=== PATIENT | male | born 1960 | race African-American/Black ===

== ENCOUNTER 2017-09-11 11:05 | Outpatient (CLI) | payer OTHER | END 2017-09-11 11:06 | disposition home or self-care (01) | LOC: BICRAD 11:05 | PROVIDERS: ATTEND Internal Medicine | DX: Z02.71 Encounter for disability determination (principal); M17.11 Unilateral primary osteoarthritis, right knee ==

== ENCOUNTER 2021-03-26 08:10 | Outpatient (CLI) | payer BC, MEDICARE | END 2021-03-26 08:11 | disposition home or self-care (01) | PROVIDERS: ATTEND Family Medicine | DX: E66.01 Morbid (severe) obesity due to excess calories (principal); R60.0 Localized edema; M19.90 Unspecified osteoarthritis, unspecified site; I10 Essential (primary) hypertension; Z68.43 Body mass index [BMI] 50.0-59.9, adult ==

== ENCOUNTER 2021-04-23 17:18 | Emergency (ER) | payer BC, MEDICARE ==
[2021-04-24 21:38] LABS: SARS-CoV-2 PCR by NAA Not Detected (NotDetected)
== END 2021-04-23 22:21 | disposition home or self-care (01) ==
LOC: ERS 17:18
DX: J00 Acute nasopharyngitis [common cold] (principal); Z20.822 Contact with and (suspected) exposure to COVID-19; I11.0 Hypertensive heart disease with heart failure; M10.9 Gout, unspecified; I50.9 Heart failure, unspecified; E78.5 Hyperlipidemia, unspecified
CPT/HCPCS: 71045; U0003; U0005

== ENCOUNTER 2022-02-08 13:51 | Inpatient (IN) | payer BC, MEDICARE ==
[2022-02-08 14:41] LABS: #Lymphocytes 1.5 thou/uL (1.20-3.40); #Monocytes 0.8 thou/uL (0.11-0.59); #Neutrophils 11.4 thou/uL (1.40-6.50); %Eosinophils 0.3 % (0.0-10.0); %Lymphocytes 10.9 % (21.0-51.0); %Monocytes 5.9 % (0.0-10.0); %Neutrophils 82.9 % (42.0-75.0); Hemoglobin 14.5 g/dL (14.0-18.0); Mean Corpuscular HGB CONC 30.9 g/dL (32.0-36.0); Mean Corpuscular Hemoglobin 28.6 pg (27.0-31.0); Mean Corpuscular Volume 92.5 fL (78.0-98.0); Mean Platelet Volume 8.3 fL (7.4-10.4); Platelet Count 381 thou/uL (130-400); RBC Distribution Width 13.9 % (11.5-14.5); Red Blood Cell (RBC) Count 5.07 mill/uL (4.70-6.10); White Blood Cell (WBC) Count 13.7 thou/uL (4.8-10.8)
[2022-02-08 15:01] LABS: ALT (SGPT) 12 U/L (8-55); AST (SGOT) 11 U/L (5-34); Albumin 3.4 g/dL (3.4-4.8); Alkaline Phosphatase 87 U/L (40-110); Anion Gap 13 mmol/L (10-20); BUN (Urea Nitrogen) 11 mg/dL (8.4-25.7); Bilirubin, Total 0.3 mg/dL (0.2-1.2); Calc. Creatinine Clearance 0 mL/min (70-130); Calcium 9.4 mg/dL (7.8-10.44); Carbon Dioxide 28 mmol/L (23-31); Chloride 100 mmol/L (98-107); Globulin 4.8 g/dL (2.4-3.5); Glucose 120 mg/dL (80-115); Lipase 6 U/L (8-78); Potassium 4.4 mmol/L (3.5-5.1); Protein, Total 8.2 g/dL (5.8-8.1); Sodium 137 mmol/L (136-145)
[2022-02-08] MEDS ORDERED: Ondansetron PF 4 MG/2 ML Vial ONE (16:17)
[2022-02-08 16:38] LABS: Bilirubin Negative (Negative); Blood, Urine 1+ (Negative); Clarity Clear (Clear); Glucose, Urine (Dipstick) Normal (Negative); Ketone, Urine Negative (Negative); Leukocyte Negative Leu/uL (Negative); Nitrite Negative (Negative); Protein, Urine (Dipstick) 600 mg/dL (Neg-Trace); Specific Gravity, Urine 1.018 (1.002-1.036); Urobilinogen Normal mg/dL (Less than 2); pH, Urine 7.5 (5.0-9.0)
[2022-02-08 16:39] LABS: Bacteria/HPF None Seen HPF (None Seen); RBC/HPF 0-3 HPF (0-3); Squamous Epithelial 0-3 HPF (0-3); WBC/HPF 0-3 HPF (0-3)
[2022-02-08] MEDS ORDERED: Morphine 4 MG/ML VIAL ONE (19:07)
[2022-02-08] MEDS ORDERED: Ondansetron ODT 4 MG TAB PO PRN (21:29)
[2022-02-08] MEDS ORDERED: Acetaminophen 650 MG Suppository PR PRN (21:29)
[2022-02-08] MEDS ORDERED: Ondansetron PF 4 MG/2 ML Vial IVP PRN (21:29)
[2022-02-08] MEDS ORDERED: Sodium Chloride 0.9% 1,000 ML IV SCH (21:30)
[2022-02-08] MEDS: Acetaminophen 325 MG TAB PO PRN (22:15)
[2022-02-08] MEDS: Sodium Chloride 0.9% 1,000 ML IV SCH (22:17)
[2022-02-08 23:50] LABS: SARS-CoV-2 NAA Rapid Test Not Detected (NotDetected)
[2022-02-09] MEDS ORDERED: Furosemide 40 MG TAB PO PRN (00:25)
[2022-02-09 00:39] LABS: Lactic Acid 2.7 mmol/L (0.5-2.2)
[2022-02-09] MEDS ORDERED: traMADol HCl 50 MG TAB PO SCH (01:00)
[2022-02-09] MEDS ORDERED: Loratadine/Pseudoephedrine 10/240 mg Tablet PO PRN (01:04)
[2022-02-09] MEDS: Sodium Chloride 0.9% 1,000 ML IV SCH ×4 (02:20→13:28)
[2022-02-09 05:33] LABS: Hemoglobin A1c 5.5 % (4.0-6.0)
[2022-02-09 05:53] LABS: ALT (SGPT) 8 U/L (8-55); AST (SGOT) 9 U/L (5-34); Albumin 2.8 g/dL (3.4-4.8); Alkaline Phosphatase 70 U/L (40-110); Anion Gap 12 mmol/L (10-20); BUN (Urea Nitrogen) 10 mg/dL (8.4-25.7); Bilirubin, Total 0.2 mg/dL (0.2-1.2); Calc. Creatinine Clearance 155 mL/min (70-130); Calcium 8.7 mg/dL (7.8-10.44); Carbon Dioxide 27 mmol/L (23-31); Cardiac Risk 4.1 (Less than 4.5); Chloride 103 mmol/L (98-107); Cholesterol 203 mg/dl (< 200 Desired); Globulin 4.6 g/dL (2.4-3.5); Glucose 101 mg/dL (80-115); HDL Cholesterol 50 mg/dL (>60 Neg Risk); LDL Cholesterol, Calculated 131 mg/dL; Protein, Total 7.4 g/dL (5.8-8.1); Sodium 138 mmol/L (136-145); Triglycerides 108 mg/dL (Less than 150)
[2022-02-09] MEDS: Levothyroxine Sodium 50 MCG TAB PO SCH (08:25)
[2022-02-09] MEDS: traMADol HCl 50 MG TAB PO SCH ×4 (08:25→22:52)
[2022-02-09] MEDS ORDERED: Lisinopril 2.5 MG TAB PO SCH ×2 (09:00)
[2022-02-09] MEDS: Metoprolol Tartrate 100 MG TAB PO SCH ×2 (09:16→20:48)
[2022-02-09] MEDS: NIFEdipine XL 90 MG TAB PO SCH (09:16)
[2022-02-09] MEDS: Magnesium Oxide 400 MG TAB PO SCH (09:17)
[2022-02-09] MEDS: Thiamine 100 MG TAB PO SCH (09:17)
[2022-02-09] MEDS: Enoxaparin Sodium 40 MG/0.4 ML SYRINGE SC SCH (09:17)
[2022-02-09] MEDS: Lisinopril 5 MG TAB PO SCH (09:23)
[2022-02-09 09:45] LABS: Magnesium 2.4 mg/dL (1.6-2.6)
[2022-02-09 20:43] LABS: Creatinine, Urine 82.54 mg/dL (63-166)
[2022-02-09] MEDS: Atorvastatin Calcium 40 MG TAB PO SCH (20:48)
[2022-02-10] MEDS: traMADol HCl 50 MG TAB PO SCH ×4 (05:45→23:19)
[2022-02-10] MEDS: Levothyroxine Sodium 50 MCG TAB PO SCH (05:45)
[2022-02-10 07:51] LABS: #Basophils 0.1 thou/uL (0.0-0.2); #Eosinphils 0.3 thou/uL (0.0-0.7); #Lymphocytes 1.8 thou/uL (1.20-3.40); #Monocytes 0.9 thou/uL (0.11-0.59); #Neutrophils 5.6 thou/uL (1.40-6.50); %Basophils 0.9 % (0.0-1.0); %Eosinophils 3.3 % (0.0-10.0); %Lymphocytes 21.1 % (21.0-51.0); %Monocytes 10.2 % (0.0-10.0); %Neutrophils 64.5 % (42.0-75.0); Hemoglobin 13.3 g/dL (14.0-18.0); Mean Corpuscular Hemoglobin 29.2 pg (27.0-31.0); Mean Platelet Volume 8.2 fL (7.4-10.4); Platelet Count 326 thou/uL (130-400); RBC Distribution Width 13.8 % (11.5-14.5); Red Blood Cell (RBC) Count 4.56 mill/uL (4.70-6.10); White Blood Cell (WBC) Count 8.6 thou/uL (4.8-10.8)
[2022-02-10 08:17] LABS: ALT (SGPT) 8 U/L (8-55); AST (SGOT) 10 U/L (5-34); Albumin 2.9 g/dL (3.4-4.8); Alkaline Phosphatase 64 U/L (40-110); Anion Gap 11 mmol/L (10-20); BUN (Urea Nitrogen) 10 mg/dL (8.4-25.7); Bilirubin, Total 0.3 mg/dL (0.2-1.2); Calc. Creatinine Clearance 148 mL/min (70-130); Calcium 8.8 mg/dL (7.8-10.44); Carbon Dioxide 26 mmol/L (23-31); Chloride 104 mmol/L (98-107); Globulin 4.7 g/dL (2.4-3.5); Glucose 91 mg/dL (80-115); Potassium 4.2 mmol/L (3.5-5.1); Protein, Total 7.6 g/dL (5.8-8.1); Sodium 137 mmol/L (136-145)
[2022-02-10] MEDS: Magnesium Oxide 400 MG TAB PO SCH (08:56)
[2022-02-10] MEDS: NIFEdipine XL 90 MG TAB PO SCH (08:56)
[2022-02-10] MEDS: Metoprolol Tartrate 100 MG TAB PO SCH ×3 (08:56→20:13)
[2022-02-10] MEDS: Thiamine 100 MG TAB PO SCH (08:56)
[2022-02-10] MEDS: Lisinopril 5 MG TAB PO SCH (08:56)
[2022-02-10] MEDS: Enoxaparin Sodium 40 MG/0.4 ML SYRINGE SC SCH (08:57)
[2022-02-10] MEDS ORDERED: EPINEPHrine 1 MG/ML AMP ONE (13:08)
[2022-02-10] MEDS ORDERED: Bupivacaine 0.25% HCL 30 ML VIAL ONE (13:08)
[2022-02-10] MEDS ORDERED: fentaNYL Citrate/PF 100 MCG/2 ML SYRINGE ONE (13:13)
[2022-02-10] MEDS ORDERED: SUGAMMADEX SODIUM 200 MG/2 ML VIAL ONE ×2 (13:14→15:03)
[2022-02-10] MEDS ORDERED: CEFAZOLIN 2 GM VIAL ONE (13:18)
[2022-02-10] MEDS ORDERED: Sodium Chloride 0.9% 100 ML ONE (13:18)
[2022-02-10] MEDS ORDERED: Ketamine 50 MG/ML (10ML VIAL) ONE (13:23)
[2022-02-10] MEDS ORDERED: Glycopyrrolate 0.2 MG/ML 5 ML SYRINGE ONE (13:32)
[2022-02-10] MEDS ORDERED: Ondansetron PF 4 MG/2 ML Vial ONE (13:32)
[2022-02-10] MEDS ORDERED: Succinylcholine 200 MG/10 ml SYRINGE FS ONE (13:32)
[2022-02-10] MEDS ORDERED: Rocuronium Bromide 10 MG/ML (10ML VIAL) ONE (13:32)
[2022-02-10] MEDS ORDERED: Lidocaine 1% PF 5 ML VIAL ONE (13:32)
[2022-02-10] MEDS ORDERED: ePHEDrine 50 MG/ML VIAL ONE (13:32)
[2022-02-10] MEDS ORDERED: PROPOFOL 200 MG/20 ML VIAL ONE (13:32)
[2022-02-10] MEDS ORDERED: Albumin 5% 250 ML ONE (14:03)
[2022-02-10] MEDS ORDERED: HYDROcodone/Acetaminophen 7.5/325 mg Tablet PO PRN ×2 (14:41)
[2022-02-10] MEDS ORDERED: Morphine 4 MG/ML VIAL SLOW IVP PRN (14:41)
[2022-02-10] MEDS: Atorvastatin Calcium 40 MG TAB PO SCH (20:13)
[2022-02-10] MEDS: Benzonatate 100 MG CAP PO PRN (20:17)
[2022-02-11 04:44] LABS: #Eosinphils 0.2 thou/uL (0.0-0.7); #Lymphocytes 1.4 thou/uL (1.20-3.40); #Monocytes 1.4 thou/uL (0.11-0.59); #Neutrophils 7.6 thou/uL (1.40-6.50); %Basophils 0.1 % (0.0-1.0); %Eosinophils 1.6 % (0.0-10.0); %Lymphocytes 13.2 % (21.0-51.0); %Monocytes 13.5 % (0.0-10.0); %Neutrophils 71.6 % (42.0-75.0); Hemoglobin 12.9 g/dL (14.0-18.0); Mean Corpuscular HGB CONC 30.5 g/dL (32.0-36.0); Mean Corpuscular Hemoglobin 29.3 pg (27.0-31.0); Mean Corpuscular Volume 96.1 fL (78.0-98.0); Mean Platelet Volume 8.6 fL (7.4-10.4); Platelet Count 292 thou/uL (130-400); RBC Distribution Width 14.1 % (11.5-14.5); Red Blood Cell (RBC) Count 4.42 mill/uL (4.70-6.10); White Blood Cell (WBC) Count 10.6 thou/uL (4.8-10.8)
[2022-02-11 05:02] LABS: ALT (SGPT) 7 U/L (8-55); AST (SGOT) 8 U/L (5-34); Alkaline Phosphatase 63 U/L (40-110); Anion Gap 13 mmol/L (10-20); BUN (Urea Nitrogen) 12 mg/dL (8.4-25.7); Bilirubin, Total 0.4 mg/dL (0.2-1.2); Calc. Creatinine Clearance 135 mL/min (70-130); Calcium 9.1 mg/dL (7.8-10.44); Carbon Dioxide 26 mmol/L (23-31); Chloride 102 mmol/L (98-107); Globulin 4.4 g/dL (2.4-3.5); Glucose 90 mg/dL (80-115); Potassium 4.7 mmol/L (3.5-5.1); Protein, Total 7.4 g/dL (5.8-8.1); Sodium 136 mmol/L (136-145)
[2022-02-11] MEDS: traMADol HCl 50 MG TAB PO SCH ×4 (05:12→23:20)
[2022-02-11] MEDS: Levothyroxine Sodium 50 MCG TAB PO SCH (05:13)
[2022-02-11] MEDS ORDERED: Furosemide 40 MG TAB PO SCH (09:15)
[2022-02-11] MEDS ORDERED: Polyethylene Glycol 3350 17 GM Packet PO SCH (09:30)
[2022-02-11] MEDS: Magnesium Oxide 400 MG TAB PO SCH (10:09)
[2022-02-11] MEDS: Lisinopril 5 MG TAB PO SCH (10:09)
[2022-02-11] MEDS: Enoxaparin Sodium 40 MG/0.4 ML SYRINGE SC SCH (10:09)
[2022-02-11] MEDS: Thiamine 100 MG TAB PO SCH (10:10)
[2022-02-11] MEDS: Metoprolol Tartrate 100 MG TAB PO SCH ×2 (10:10→20:45)
[2022-02-11] MEDS: NIFEdipine XL 90 MG TAB PO SCH (10:10)
[2022-02-11] MEDS ORDERED: Metoprolol Tartrate 100 MG TAB PO SCH (13:30)
[2022-02-11] MEDS: Atorvastatin Calcium 40 MG TAB PO SCH (21:08)
[2022-02-11] MEDS: Benzonatate 100 MG CAP PO PRN (21:08)
[2022-02-11] MEDS ORDERED: Diltiazem 125 MG in Sodium Chloride 0.9% 100 ML IVPB SCH (22:15)
[2022-02-12] MEDS: traMADol HCl 50 MG TAB PO SCH ×3 (06:16→18:09)
[2022-02-12] MEDS: Levothyroxine Sodium 50 MCG TAB PO SCH (06:16)
[2022-02-12] MEDS: Lisinopril 5 MG TAB PO SCH (09:49)
[2022-02-12] MEDS: NIFEdipine XL 90 MG TAB PO SCH (09:49)
[2022-02-12] MEDS: Enoxaparin Sodium 40 MG/0.4 ML SYRINGE SC SCH (09:49)
[2022-02-12] MEDS: Magnesium Oxide 400 MG TAB PO SCH (09:49)
[2022-02-12] MEDS: Thiamine 100 MG TAB PO SCH (09:50)
[2022-02-12] MEDS: Metoprolol Tartrate 100 MG TAB PO SCH ×2 (09:50→20:34)
[2022-02-12] MEDS: Polyethylene Glycol 3350 17 GM Packet PO SCH (09:50)
[2022-02-12] MEDS ORDERED: Loratadine 10 MG TAB PO PRN (10:29)
[2022-02-12] MEDS: Atorvastatin Calcium 40 MG TAB PO SCH (20:34)
[2022-02-13] MEDS: traMADol HCl 50 MG TAB PO SCH ×2 (02:03→05:21)
[2022-02-13] MEDS: Levothyroxine Sodium 50 MCG TAB PO SCH ×2 (05:04→06:23)
[2022-02-13] MEDS ORDERED: Metoprolol Tartrate 5 MG/5 ML VIAL IVP SCH ×2 (06:15→07:30)
[2022-02-13 07:30] LABS: Actual Bicarbonate (HCO3a) 25.2 mEq/L (22-28); Analyzer IN Cardio OR; CO2 Tension 59.5 mmHg (35.0-45.0); Calcium, Ionized (arterial) 1.24 mmol/L (1.12-1.30); Carboxyhemoglobin (COHb) 2.2 gm% (0.0-3.0); Hemoglobin (Hb) 13.4 g/dL (14.0-18.0); Potassium - ABG Lab 4.96 mmol/L (3.70-5.30)
[2022-02-13 07:31] LABS: ALV-art Gradient 101.485 mmHg (0-20); O2 Tension (PaO2), arterial 52.3 mmHg (> 80.0); Puncture Site LRA; pH, Arterial 7.25 (7.35-7.45)
[2022-02-13] MEDS ORDERED: Diltiazem HCl 125 MG in Premix Bag 1 BAG IVPB SCH (07:45)
[2022-02-13 08:02] LABS: ALT (SGPT) 26 U/L (8-55); AST (SGOT) 39 U/L (5-34); Albumin 2.9 g/dL (3.4-4.8); Alkaline Phosphatase 148 U/L (40-110); Anion Gap 16 mmol/L (10-20); BUN (Urea Nitrogen) 33 mg/dL (8.4-25.7); Bilirubin, Total 2.5 mg/dL (0.2-1.2); Calc. Creatinine Clearance 72 mL/min (70-130); Calcium 9.5 mg/dL (7.8-10.44); Carbon Dioxide 24 mmol/L (23-31); Chloride 98 mmol/L (98-107); Globulin 4.8 g/dL (2.4-3.5); Glucose 104 mg/dL (80-115); Potassium 5.1 mmol/L (3.5-5.1); Protein, Total 7.7 g/dL (5.8-8.1); Sodium 133 mmol/L (136-145)
[2022-02-13 08:04] LABS: Troponin I 0.024 ng/mL (< 0.028)
[2022-02-13] MEDS ORDERED: Digoxin 0.5 MG/2 ML AMP SLOW IVP SCH (08:15)
[2022-02-13] MEDS: Dextrose 5%-Lactated Ringers 1,000 ML IV SCH (08:44)
[2022-02-13] MEDS: Enoxaparin Sodium 40 MG/0.4 ML SYRINGE SC SCH ×2 (08:48→21:27)
[2022-02-13] MEDS: Famotidine/PF 20 mg/2ml Vial SLOW IVP SCH (08:48)
[2022-02-13] MEDS: NIFEdipine XL 90 MG TAB PO SCH (08:49)
[2022-02-13] MEDS: Magnesium Oxide 400 MG TAB PO SCH (08:49)
[2022-02-13] MEDS: Metoprolol Tartrate 100 MG TAB PO SCH ×3 (08:49→21:26)
[2022-02-13] MEDS: Lisinopril 5 MG TAB PO SCH (08:49)
[2022-02-13] MEDS: Senokot S 8.6-50 MG TAB PO SCH ×2 (08:50→21:27)
[2022-02-13] MEDS: Thiamine 100 MG TAB PO SCH (08:50)
[2022-02-13] MEDS: Polyethylene Glycol 3350 17 GM Packet PO SCH (08:50)
[2022-02-13 08:57] LABS: Band 56 % (5-11); Hemoglobin 13.3 g/dL (14.0-18.0); Hypochromia SLIGHT = 6-15 cells (100X) (0-5/hpf); Lymphocytes 6 % (21-51); MDiff Complete? YES; Mean Corpuscular HGB CONC 30.3 g/dL (32.0-36.0); Mean Corpuscular Hemoglobin 28.9 pg (27.0-31.0); Mean Corpuscular Volume 95.5 fL (78.0-98.0); Mean Platelet Volume 8.2 fL (7.4-10.4); Monocytes 12 % (0-10); Neutrophil 26 % (42-75); Platelet Count 319 thou/uL (130-400); Platelet Morphology Comment Appears Adequate; Red Blood Cell (RBC) Count 4.61 mill/uL (4.70-6.10); Reflex for Review?? YES; White Blood Cell (WBC) Count 10.4 thou/uL (4.8-10.8)
[2022-02-13 10:45] LABS: Actual Bicarbonate (HCO3v) 30 mEq/L (22-28); Base Excess 1.1 mEq/L (-2.0 to +3.0); Chloride (VBG) 99 mmol/L (98-106); Hemoglobin (Hb) 13.3 g/dL (13.1-17.2); Potassium (VBG) 5.41 mmol/L (3.70-5.30); Sodium 132.9 mmol/L (133-146); pH (venous) 7.27 (7.32-7.43)
[2022-02-13] MEDS ORDERED: traMADol HCl 50 MG TAB PO PRN (10:51)
[2022-02-13] MEDS ORDERED: Piperacillin/Tazobactam 3.375 GM in Sodium Chloride 0.9% 100 ML IVPB SCH ×2 (11:45→12:00)
[2022-02-13] MEDS ORDERED: Vancomycin HCl 2.5 GM in Sodium Chloride 0.9% 500 ML IVPB SCH ×2 (12:15→15:00)
[2022-02-13] MEDS ORDERED: Amiodarone 450 MG in Dextrose 5% in Water 250 ML IVPB SCH (12:30)
[2022-02-13 15:31] LABS: ANA Symphony (Qualitative) Negative (Negative); ANA Symphony (Quantitative) 0.2 Ratio (< 0.7 Negative); dsDNA IgG Antibody 0.9 IU/mL (<10 Negative)
[2022-02-13] MEDS: Piperacillin/Tazobactam 3.375 GM in Sodium Chloride 0.9% 100 ML IVPB SCH (15:37)
[2022-02-13 15:51] LABS: Anion Gap 15 mmol/L (10-20); BUN (Urea Nitrogen) 37 mg/dL (8.4-25.7); Calc. Creatinine Clearance 64 mL/min (70-130); Carbon Dioxide 24 mmol/L (23-31); Chloride 101 mmol/L (98-107); Glucose 111 mg/dL (80-115); Potassium 5.2 mmol/L (3.5-5.1); Sodium 135 mmol/L (136-145)
[2022-02-13 20:36] LABS: Troponin I 0.035 ng/mL (< 0.028)
[2022-02-13] MEDS: Atorvastatin Calcium 40 MG TAB PO SCH (21:26)
[2022-02-13 22:54] LABS: Actual Bicarbonate (HCO3a) 18.4 mEq/L (22-28); Base Excess (BEa) -12.8 mEq/L (-2.0 to +3.0); Calcium, Ionized (arterial) 1.37 mmol/L (1.12-1.30); Carboxyhemoglobin (COHb) 1.4 gm% (0.0-3.0); Hemoglobin (Hb) 13.1 g/dL (14.0-18.0); O2 Tension (PaO2), arterial 185.3 mmHg (> 80.0); Potassium - ABG Lab 4.67 mmol/L (3.70-5.30)
[2022-02-13 22:59] LABS: pH, Arterial 7.05 (7.35-7.45)
[2022-02-13 23:00] LABS: CO2 Tension 68.3 mmHg (35.0-45.0)
[2022-02-13] MEDS ORDERED: Norepinephrine 8 MG/0.9% NS 250 ML ONE (23:00)
[2022-02-13] MEDS ORDERED: Propofol 1,000 MG/100 ML VIAL IV ONE (23:16)
[2022-02-13] MEDS ORDERED: Vasopressin 20 UNIT, Admixture Fee 1 EACH in Sodium Chloride 0.9% 50 ML IV SCH (23:30)
[2022-02-14] MEDS: Sodium Bicarbonate 150 MEQ in Dextrose 5% in Water 1,000 ML IV SCH ×2 (00:17→07:31)
[2022-02-14] MEDS: Norepinephrine 8 MG/0.9% NS 250 ML IVPB SCH ×2 (00:25→03:37)
[2022-02-14] MEDS: Piperacillin/Tazobactam 3.375 GM in Sodium Chloride 0.9% 100 ML IVPB SCH ×4 (00:48→23:57)
[2022-02-14] MEDS: Hydrocortisone Sod Succ/PF 100 mg/2 ml Vial IVP SCH ×5 (01:10→23:57)
[2022-02-14 02:34] LABS: ALT (SGPT) 27 U/L (8-55); AST (SGOT) 46 U/L (5-34); Albumin 2.1 g/dL (3.4-4.8); Alkaline Phosphatase 114 U/L (40-110); Anion Gap 25 mmol/L (10-20); BUN (Urea Nitrogen) 38 mg/dL (8.4-25.7); Bilirubin, Total 2.4 mg/dL (0.2-1.2); Calc. Creatinine Clearance 51 mL/min (70-130); Calcium 8.7 mg/dL (7.8-10.44); Carbon Dioxide 14 mmol/L (23-31); Chloride 103 mmol/L (98-107); Globulin 3.7 g/dL (2.4-3.5); Glucose 463 mg/dL (80-115); Magnesium 2.6 mg/dL (1.6-2.6); Phosphorus 3.1 mg/dL (2.3-4.7); Potassium 5.7 mmol/L (3.5-5.1); Protein, Total 5.8 g/dL (5.8-8.1); Sodium 136 mmol/L (136-145)
[2022-02-14 02:37] LABS: Troponin I 0.041 ng/mL (< 0.028)
[2022-02-14 02:40] LABS: Band 18 % (5-11); Hemoglobin 10.1 g/dL (14.0-18.0); Lymphocytes 51 % (21-51); MDiff Complete? YES; Mean Corpuscular HGB CONC 28.5 g/dL (32.0-36.0); Mean Corpuscular Hemoglobin 28.4 pg (27.0-31.0); Mean Corpuscular Volume 99.6 fL (78.0-98.0); Mean Platelet Volume 9.8 fL (7.4-10.4); Monocytes 13 % (0-10); Neutrophil 18 % (42-75); Platelet Count 261 thou/uL (130-400); Platelet Morphology Comment Appears Adequate; RBC Distribution Width 14.4 % (11.5-14.5); Red Blood Cell (RBC) Count 3.56 mill/uL (4.70-6.10); White Blood Cell (WBC) Count 12.8 thou/uL (4.8-10.8)
[2022-02-14 03:29] LABS: CO2 Tension 50.1 mmHg (35.0-45.0); Calcium, Ionized (arterial) 1.24 mmol/L (1.12-1.30); Carboxyhemoglobin (COHb) 0.9 gm% (0.0-3.0); Hemoglobin (Hb) 12.3 g/dL (14.0-18.0); O2 Tension (PaO2), arterial 144.6 mmHg (> 80.0); Potassium - ABG Lab 4.34 mmol/L (3.70-5.30); pH, Arterial 7.28 (7.35-7.45)
[2022-02-14 03:30] LABS: Puncture Site RBA
[2022-02-14 03:31] LABS: ALV-art Gradient 505.775 mmHg (0-20)
[2022-02-14 04:21] LABS: ALT (SGPT) 33 U/L (8-55); AST (SGOT) 62 U/L (5-34); Albumin 2.2 g/dL (3.4-4.8); Alkaline Phosphatase 127 U/L (40-110); Anion Gap 14 mmol/L (10-20); BUN (Urea Nitrogen) 48 mg/dL (8.4-25.7); Bilirubin, Total 3.4 mg/dL (0.2-1.2); Calc. Creatinine Clearance 42 mL/min (70-130); Calcium 9.3 mg/dL (7.8-10.44); Carbon Dioxide 24 mmol/L (23-31); Chloride 100 mmol/L (98-107); Globulin 4.1 g/dL (2.4-3.5); Glucose 100 mg/dL (80-115); Potassium 4.4 mmol/L (3.5-5.1); Protein, Total 6.3 g/dL (5.8-8.1); Sodium 134 mmol/L (136-145)
[2022-02-14 04:22] LABS: Troponin I 0.105 ng/mL (< 0.028)
[2022-02-14 04:35] LABS: Band 40 % (5-11); Hemoglobin 11.9 g/dL (14.0-18.0); Hypochromia SLIGHT = 6-15 cells (100X) (0-5/hpf); Lymphocytes 10 % (21-51); MDiff Complete? YES; Mean Corpuscular HGB CONC 30.9 g/dL (32.0-36.0); Mean Corpuscular Hemoglobin 29.6 pg (27.0-31.0); Mean Platelet Volume 8.7 fL (7.4-10.4); Metamyelocyte 4 % (0-0); Monocytes 9 % (0-10); Neutrophil 37 % (42-75); Platelet Count 299 thou/uL (130-400); Platelet Morphology Comment Appears Adequate; Red Blood Cell (RBC) Count 4.02 mill/uL (4.70-6.10); White Blood Cell (WBC) Count 10.3 thou/uL (4.8-10.8)
[2022-02-14] MEDS ORDERED: DISCONTINUE PREVIOUS NARCOTIC PAIN MEDICATIONS AND BENZODIAZEPINES FS SCH (06:15)
[2022-02-14] MEDS ORDERED: Propofol BOLUS 1,000 MG/100 ML VIAL IV PRN (06:15)
[2022-02-14] MEDS ORDERED: Fentanyl BOLUS 250 ML IVPB PRN (06:15)
[2022-02-14] MEDS ORDERED: Fentanyl CADD 100 ML IV SCH (06:15)
[2022-02-14] MEDS: Dextrose 5%-Lactated Ringers 1,000 ML IV SCH (06:25)
[2022-02-14] MEDS: Levothyroxine Sodium 50 MCG TAB PO SCH (06:25)
[2022-02-14] MEDS ORDERED: fentaNYL Citrate-0.9 % NaCl/PF 100 ML IV SCH (06:30)
[2022-02-14] MEDS: Magnesium Oxide 400 MG TAB PO SCH (07:27)
[2022-02-14] MEDS: Metoprolol Tartrate 100 MG TAB PO SCH ×2 (07:27→20:37)
[2022-02-14] MEDS: Senokot S 8.6-50 MG TAB PO SCH ×2 (07:28→20:38)
[2022-02-14] MEDS: NIFEdipine XL 90 MG TAB PO SCH (07:28)
[2022-02-14] MEDS: Polyethylene Glycol 3350 17 GM Packet PO SCH (07:28)
[2022-02-14] MEDS: Thiamine 100 MG TAB PO SCH (07:29)
[2022-02-14] MEDS: Enoxaparin Sodium 40 MG/0.4 ML SYRINGE SC SCH ×2 (07:30→21:27)
[2022-02-14] MEDS: Amiodarone 450 MG, Admixture Fee 1 EACH in Dextrose 5% in Water 250 ML IVPB SCH (07:31)
[2022-02-14] MEDS: Famotidine/PF 20 mg/2ml Vial SLOW IVP SCH (08:09)
[2022-02-14] MEDS ORDERED: Insulin Regular 300 UNITS/3 ML VIAL SC PRN (08:11)
[2022-02-14 10:29] LABS: Actual Bicarbonate (HCO3v) 25 mEq/L (22-28); Base Excess -1.9 mEq/L (-2.0 to +3.0); Calcium, Ionized (venous) 1.08 mmol/L (1.16-1.32); Chloride (VBG) 99 mmol/L (98-106); Hemoglobin (Hb) 12.2 g/dL (13.1-17.2); Potassium (VBG) 4.75 mmol/L (3.70-5.30); Sodium 130.6 mmol/L (133-146); pH (venous) 7.32 (7.32-7.43)
[2022-02-14] MEDS: Sodium Chloride 0.9% 1,000 ML IV SCH (11:39)
[2022-02-14] MEDS ORDERED: Fentanyl 100 MCG/2 ML VIAL ONE (11:43)
[2022-02-14] MEDS ORDERED: Lidocaine 1% (PF) 30 ML VIAL ONE (11:44)
[2022-02-14] MEDS: Propofol 1,000 MG/100 ML VIAL IV PRN ×2 (11:58→23:57)
[2022-02-14] MEDS ORDERED: VANCOMYCIN 2 GRAM/500 ML BAG 2 GM in Premix Bag 1 BAG IVPB SCH (13:00)
[2022-02-14] MEDS ORDERED: Vancomycin HCl 2.5 GM in Sodium Chloride 0.9% 500 ML IVPB SCH (13:00)
[2022-02-14] MEDS: Lorazepam 2 MG/ML VIAL SLOW IVP PRN ×2 (13:09→14:28)
[2022-02-14 13:16] LABS: Vancomycin, Random 23.1 ug/mL (See Comment)
[2022-02-14] MEDS ORDERED: Amiodarone 150 MG in Dextrose 5% in Water 100 ML IVPB SCH (16:00)
[2022-02-14] MEDS: Atorvastatin Calcium 40 MG TAB PO SCH (20:37)
[2022-02-15] MEDS: Amiodarone 450 MG, Admixture Fee 1 EACH in Dextrose 5% in Water 250 ML IVPB SCH ×2 (03:33→20:20)
[2022-02-15 04:32] LABS: ALT (SGPT) 38 U/L (8-55); AST (SGOT) 74 U/L (5-34); Alkaline Phosphatase 92 U/L (40-110); Anion Gap 20 mmol/L (10-20); BUN (Urea Nitrogen) 63 mg/dL (8.4-25.7); Bilirubin, Total 4.1 mg/dL (0.2-1.2); Calc. Creatinine Clearance 31 mL/min (70-130); Calcium 8.2 mg/dL (7.8-10.44); Carbon Dioxide 22 mmol/L (23-31); Chloride 98 mmol/L (98-107); Globulin 3.7 g/dL (2.4-3.5); Glucose 69 mg/dL (80-115); Potassium 5.7 mmol/L (3.5-5.1); Protein, Total 5.7 g/dL (5.8-8.1); Sodium 134 mmol/L (136-145)
[2022-02-15 04:35] LABS: Band 64 % (5-11); Hemoglobin 10.6 g/dL (14.0-18.0); Hypochromia SLIGHT = 6-15 cells (100X) (0-5/hpf); Lymphocytes 7 % (21-51); MDiff Complete? YES; Mean Corpuscular HGB CONC 30.7 g/dL (32.0-36.0); Mean Corpuscular Hemoglobin 28.9 pg (27.0-31.0); Mean Corpuscular Volume 94.3 fL (78.0-98.0); Mean Platelet Volume 8.8 fL (7.4-10.4); Metamyelocyte 13 % (0-0); Monocytes 3 % (0-10); Myelocyte 1 % (0-0); Neutrophil 12 % (42-75); Nucleated RBC 2 % (0); Platelet Count 262 thou/uL (130-400); Platelet Morphology Comment Appears Adequate; Polychromasia SLIGHT = 2-3 cells (100X) (0-2/hpf); RBC Distribution Width 14.2 % (11.5-14.5); Red Blood Cell (RBC) Count 3.66 mill/uL (4.70-6.10); White Blood Cell (WBC) Count 17.9 thou/uL (4.8-10.8)
[2022-02-15] MEDS ORDERED: Dextrose 50% Abboject 50 ML SYRINGE SLOW IVP PRN (04:42)
[2022-02-15] MEDS ORDERED: Dextrose 5% in Water 1,000 ML IV PRN (04:42)
[2022-02-15] MEDS: Hydrocortisone Sod Succ/PF 100 mg/2 ml Vial IVP SCH ×3 (06:08→17:16)
[2022-02-15] MEDS: Piperacillin/Tazobactam 3.375 GM in Sodium Chloride 0.9% 100 ML IVPB SCH ×2 (07:18→20:48)
[2022-02-15] MEDS: Famotidine/PF 20 mg/2ml Vial SLOW IVP SCH (07:18)
[2022-02-15 08:43] LABS: Actual Bicarbonate (HCO3a) 22.6 mEq/L (22-28); Base Excess (BEa) -3.2 mEq/L (-2.0 to +3.0); CO2 Tension 43.9 mmHg (35.0-45.0); Calcium, Ionized (arterial) 1.01 mmol/L (1.12-1.30); Carboxyhemoglobin (COHb) 1.1 gm% (0.0-3.0); Hemoglobin (Hb) 10.8 g/dL (14.0-18.0); Potassium - ABG Lab 5.24 mmol/L (3.70-5.30); pH, Arterial 7.33 (7.35-7.45)
[2022-02-15 08:46] LABS: O2 Tension (PaO2), arterial 52.3 mmHg (> 80.0)
[2022-02-15 08:47] LABS: ALV-art Gradient 178.025 mmHg (0-20); Puncture Site RRA
[2022-02-15] MEDS: Levothyroxine Sodium 50 MCG TAB PO SCH (09:07)
[2022-02-15] MEDS: Magnesium Oxide 400 MG TAB PO SCH (09:07)
[2022-02-15] MEDS: Metoprolol Tartrate 100 MG TAB PO SCH ×2 (09:07→20:48)
[2022-02-15] MEDS: NIFEdipine XL 90 MG TAB PO SCH (09:07)
[2022-02-15] MEDS: Thiamine 100 MG TAB PO SCH (09:08)
[2022-02-15] MEDS: Polyethylene Glycol 3350 17 GM Packet PO SCH ×2 (09:08→10:57)
[2022-02-15] MEDS: Senokot S 8.6-50 MG TAB PO SCH ×3 (09:08→20:48)
[2022-02-15] MEDS: Enoxaparin Sodium 40 MG/0.4 ML SYRINGE SC SCH ×2 (09:09→20:48)
[2022-02-15] MEDS: Lorazepam 2 MG/ML VIAL SLOW IVP PRN (10:10)
[2022-02-15] MEDS: Propofol 1,000 MG/100 ML VIAL IV PRN ×2 (10:10→17:52)
[2022-02-15] MEDS ORDERED: Heparin 10,000 UNITS/ 10 ML VIAL ONE (11:56)
[2022-02-15 13:40] LABS: Vancomycin, Random 19.3 ug/mL (See Comment)
[2022-02-15 17:18] LABS: HBSAB Concentration Less than 8.00 mIU/mL; HBSAg Index 0.26 S/CO (0-0.99); Hep B Core Total Ab Non-Reactive (NonReactive); Hep B Core Total Index 0.07 S/CO (0-0.79); Hep B Surf AB Non-Reactive (NonReactive); Hep B Surf Ag Non-Reactive S/CO (NonReactive); Hep C IgG Ab Non-Reactive (NonReactive); Hep C Index 0.05 S/CO (0-0.79)
[2022-02-15] MEDS: Atorvastatin Calcium 40 MG TAB PO SCH (20:48)
[2022-02-16] MEDS: Hydrocortisone Sod Succ/PF 100 mg/2 ml Vial IVP SCH ×3 (00:49→11:21)
[2022-02-16] MEDS: Propofol 1,000 MG/100 ML VIAL IV PRN ×4 (03:06→22:30)
[2022-02-16] MEDS: Sodium Chloride 0.9% 1,000 ML IV SCH ×2 (03:07→13:26)
[2022-02-16] MEDS: Acetaminophen 325 MG TAB PO PRN (03:51)
[2022-02-16 05:11] LABS: ALT (SGPT) 58 U/L (8-55); AST (SGOT) 162 U/L (5-34); Alkaline Phosphatase 97 U/L (40-110); Anion Gap 17 mmol/L (10-20); BUN (Urea Nitrogen) 61 mg/dL (8.4-25.7); Band 32 % (5-11); Bilirubin, Total 3.7 mg/dL (0.2-1.2); Calc. Creatinine Clearance 32 mL/min (70-130); Calcium 7.4 mg/dL (7.8-10.44); Carbon Dioxide 23 mmol/L (23-31); Chloride 99 mmol/L (98-107); Estimated GFR 9; Globulin 3.8 g/dL (2.4-3.5); Glucose 67 mg/dL (80-115); Hemoglobin 10.3 g/dL (14.0-18.0); Hypochromia SLIGHT = 6-15 cells (100X) (0-5/hpf); Lymphocytes 6 % (21-51); MDiff Complete? YES; Mean Corpuscular HGB CONC 30.9 g/dL (32.0-36.0); Mean Corpuscular Hemoglobin 28.7 pg (27.0-31.0); Mean Corpuscular Volume 92.7 fL (78.0-98.0); Mean Platelet Volume 9.1 fL (7.4-10.4); Monocytes 14 % (0-10); Neutrophil 48 % (42-75); Nucleated RBC 2 % (0); Platelet Count 216 thou/uL (130-400); Platelet Morphology Comment Appears Adequate; Potassium 5.1 mmol/L (3.5-5.1); Protein, Total 5.8 g/dL (5.8-8.1); RBC Distribution Width 14.3 % (11.5-14.5); Sodium 134 mmol/L (136-145); White Blood Cell (WBC) Count 14.1 thou/uL (4.8-10.8)
[2022-02-16] MEDS: Levothyroxine Sodium 50 MCG TAB PO SCH ×2 (05:41→07:26)
[2022-02-16] MEDS: Polyethylene Glycol 3350 17 GM Packet PO SCH (07:24)
[2022-02-16] MEDS: Enoxaparin Sodium 40 MG/0.4 ML SYRINGE SC SCH (07:26)
[2022-02-16] MEDS: Piperacillin/Tazobactam 3.375 GM in Sodium Chloride 0.9% 100 ML IVPB SCH ×2 (07:26→20:28)
[2022-02-16] MEDS: Senokot S 8.6-50 MG TAB PO SCH ×2 (07:26→20:29)
[2022-02-16] MEDS: Famotidine/PF 20 mg/2ml Vial SLOW IVP SCH (07:26)
[2022-02-16] MEDS: NIFEdipine XL 90 MG TAB PO SCH (07:28)
[2022-02-16] MEDS: Magnesium Oxide 400 MG TAB PO SCH (07:28)
[2022-02-16] MEDS: Metoprolol Tartrate 100 MG TAB PO SCH ×2 (07:28→20:29)
[2022-02-16] MEDS: Thiamine 100 MG TAB PO SCH (07:28)
[2022-02-16] MEDS: Lorazepam 2 MG/ML VIAL SLOW IVP PRN ×3 (07:42→13:25)
[2022-02-16 08:12] LABS: Actual Bicarbonate (HCO3a) 23.5 mEq/L (22-28); Base Excess (BEa) -2.5 mEq/L (-2.0 to +3.0); CO2 Tension 45.8 mmHg (35.0-45.0); Calcium, Ionized (arterial) 0.98 mmol/L (1.12-1.30); Carboxyhemoglobin (COHb) 1.1 gm% (0.0-3.0); Hemoglobin (Hb) 10.9 g/dL (14.0-18.0); pH, Arterial 7.33 (7.35-7.45)
[2022-02-16 08:15] LABS: O2 Tension (PaO2), arterial 51.5 mmHg (> 80.0)
[2022-02-16 08:16] LABS: Puncture Site RRA
[2022-02-16] MEDS ORDERED: Heparin 10,000 UNITS/ 10 ML VIAL ONE (10:52)
[2022-02-16] MEDS ORDERED: hydrALAZINE 20 MG/ML VIAL SLOW IVP PRN (11:27)
[2022-02-16] MEDS: Amiodarone 450 MG, Admixture Fee 1 EACH in Dextrose 5% in Water 250 ML IVPB SCH (17:26)
[2022-02-16] MEDS: Atorvastatin Calcium 40 MG TAB PO SCH (20:29)
[2022-02-16] MEDS: Heparin 5,000 UNITS/ML VIAL SC SCH (20:29)
[2022-02-17] MEDS: Hydrocortisone Sod Succ/PF 100 mg/2 ml Vial IVP SCH ×5 (00:51→19:19)
[2022-02-17] MEDS: Sodium Chloride 0.9% 1,000 ML IV SCH (02:39)
[2022-02-17] MEDS: Propofol 1,000 MG/100 ML VIAL IV PRN ×4 (04:05→20:45)
[2022-02-17 05:02] LABS: ALT (SGPT) 59 U/L (8-55); AST (SGOT) 195 U/L (5-34); Albumin 1.9 g/dL (3.4-4.8); Alkaline Phosphatase 104 U/L (40-110); Anion Gap 19 mmol/L (10-20); BUN (Urea Nitrogen) 58 mg/dL (8.4-25.7); Bilirubin, Total 3.6 mg/dL (0.2-1.2); Calc. Creatinine Clearance 34 mL/min (70-130); Calcium 7.2 mg/dL (7.8-10.44); Carbon Dioxide 22 mmol/L (23-31); Chloride 97 mmol/L (98-107); Estimated GFR 10; Globulin 3.8 g/dL (2.4-3.5); Glucose 87 mg/dL (80-115); Potassium 4.5 mmol/L (3.5-5.1); Protein, Total 5.7 g/dL (5.8-8.1); Sodium 133 mmol/L (136-145)
[2022-02-17] MEDS: Levothyroxine Sodium 50 MCG TAB PO SCH (05:25)
[2022-02-17] MEDS: Heparin 5,000 UNITS/ML VIAL SC SCH ×3 (05:28→21:24)
[2022-02-17 05:30] LABS: Band 41 % (5-11); Eosinophils 2 % (0-10); Lymphocytes 3 % (21-51); MDiff Complete? YES; Mean Corpuscular HGB CONC 31.1 g/dL (32.0-36.0); Mean Corpuscular Volume 93.2 fL (78.0-98.0); Monocytes 7 % (0-10); Neutrophil 47 % (42-75); Platelet Count 186 thou/uL (130-400); RBC Distribution Width 14.4 % (11.5-14.5); Red Blood Cell (RBC) Count 3.46 mill/uL (4.70-6.10)
[2022-02-17 08:06] LABS: Actual Bicarbonate (HCO3a) 22.6 mEq/L (22-28); Base Excess (BEa) -3.4 mEq/L (-2.0 to +3.0); CO2 Tension 44.7 mmHg (35.0-45.0); Calcium, Ionized (arterial) 0.96 mmol/L (1.12-1.30); Carboxyhemoglobin (COHb) 0.9 gm% (0.0-3.0); Hemoglobin (Hb) 10.8 g/dL (14.0-18.0); O2 Tension (PaO2), arterial 75.5 mmHg (> 80.0); Potassium - ABG Lab 4.24 mmol/L (3.70-5.30); pH, Arterial 7.32 (7.35-7.45)
[2022-02-17 08:07] LABS: Puncture Site RRA
[2022-02-17 08:08] LABS: ALV-art Gradient 296.425 mmHg (0-20)
[2022-02-17] MEDS ORDERED: Heparin 10,000 UNITS/ 10 ML VIAL ONE (08:57)
[2022-02-17] MEDS: Polyethylene Glycol 3350 17 GM Packet PO SCH (09:53)
[2022-02-17] MEDS: Thiamine 100 MG TAB PO SCH (09:53)
[2022-02-17] MEDS: Magnesium Oxide 400 MG TAB PO SCH (09:53)
[2022-02-17] MEDS: Senokot S 8.6-50 MG TAB PO SCH ×2 (09:53→20:46)
[2022-02-17] MEDS: Amiodarone 200 MG TAB PER TUBE SCH ×3 (09:54→20:46)
[2022-02-17] MEDS ORDERED: Loratadine 10 MG TAB PO PRN (10:00)
[2022-02-17] MEDS: Piperacillin/Tazobactam 3.375 GM in Sodium Chloride 0.9% 100 ML IVPB SCH ×2 (15:16→20:45)
[2022-02-17] MEDS: NIFEdipine XL 90 MG TAB PO SCH (15:18)
[2022-02-17] MEDS: Metoprolol Tartrate 100 MG TAB PO SCH ×2 (15:21→21:39)
[2022-02-17] MEDS: Famotidine/PF 20 mg/2ml Vial SLOW IVP SCH (15:21)
[2022-02-17] MEDS: Atorvastatin Calcium 40 MG TAB PO SCH (20:46)
[2022-02-17] MEDS: Lorazepam 2 MG/ML VIAL SLOW IVP PRN (21:10)
[2022-02-18] MEDS: Sodium Chloride 0.9% 1,000 ML IV SCH ×2 (00:01→17:38)
[2022-02-18] MEDS: Propofol 1,000 MG/100 ML VIAL IV PRN ×8 (00:01→23:50)
[2022-02-18] MEDS: Hydrocortisone Sod Succ/PF 100 mg/2 ml Vial IVP SCH ×5 (03:15→17:19)
[2022-02-18] MEDS: Morphine 2 MG/ML VIAL SLOW IVP PRN (03:36)
[2022-02-18] MEDS: Metoprolol Tartrate 100 MG TAB PO SCH ×3 (03:58→20:19)
[2022-02-18 04:36] LABS: ALT (SGPT) 51 U/L (8-55); AST (SGOT) 170 U/L (5-34); Albumin 1.9 g/dL (3.4-4.8); Alkaline Phosphatase 114 U/L (40-110); Anion Gap 17 mmol/L (10-20); BUN (Urea Nitrogen) 52 mg/dL (8.4-25.7); Bilirubin, Total 3.4 mg/dL (0.2-1.2); Calc. Creatinine Clearance 36 mL/min (70-130); Calcium 7.2 mg/dL (7.8-10.44); Carbon Dioxide 24 mmol/L (23-31); Chloride 96 mmol/L (98-107); Estimated GFR 11; Globulin 3.7 g/dL (2.4-3.5); Glucose 93 mg/dL (80-115); Protein, Total 5.6 g/dL (5.8-8.1); Sodium 133 mmol/L (136-145)
[2022-02-18 05:21] LABS: Band 35 % (5-11); Lymphocytes 20 % (21-51); MDiff Complete? YES; Mean Corpuscular Hemoglobin 29.1 pg (27.0-31.0); Mean Corpuscular Volume 91.1 fL (78.0-98.0); Monocytes 3 % (0-10); Neutrophil 42 % (42-75); Platelet Count 161 thou/uL (130-400); RBC Distribution Width 14.3 % (11.5-14.5); Red Blood Cell (RBC) Count 3.42 mill/uL (4.70-6.10); White Blood Cell (WBC) Count 19.5 thou/uL (4.8-10.8)
[2022-02-18] MEDS: Heparin 5,000 UNITS/ML VIAL SC SCH ×3 (05:47→21:02)
[2022-02-18 07:04] LABS: Actual Bicarbonate (HCO3a) 24.7 mEq/L (22-28); Base Excess (BEa) -2.9 mEq/L (-2.0 to +3.0); CO2 Tension 54.2 mmHg (35.0-45.0); Calcium, Ionized (arterial) 0.96 mmol/L (1.12-1.30); Hemoglobin (Hb) 14.4 g/dL (14.0-18.0); O2 Tension (PaO2), arterial 74.5 mmHg (> 80.0); Potassium - ABG Lab 3.98 mmol/L (3.70-5.30); pH, Arterial 7.28 (7.35-7.45)
[2022-02-18 07:15] LABS: Puncture Site RRA
[2022-02-18] MEDS: Piperacillin/Tazobactam 3.375 GM in Sodium Chloride 0.9% 100 ML IVPB SCH ×2 (08:10→20:15)
[2022-02-18] MEDS: Polyethylene Glycol 3350 17 GM Packet PO SCH (08:11)
[2022-02-18] MEDS: Famotidine/PF 20 mg/2ml Vial SLOW IVP SCH (08:11)
[2022-02-18] MEDS: Thiamine 100 MG TAB PO SCH (08:12)
[2022-02-18] MEDS: Senokot S 8.6-50 MG TAB PO SCH ×2 (08:12→20:20)
[2022-02-18] MEDS: NIFEdipine XL 90 MG TAB PO SCH (08:12)
[2022-02-18] MEDS: Magnesium Oxide 400 MG TAB PO SCH (08:12)
[2022-02-18] MEDS: Amiodarone 450 MG, Admixture Fee 1 EACH in Dextrose 5% in Water 250 ML IVPB SCH ×2 (08:34→15:12)
[2022-02-18] MEDS: Atorvastatin Calcium 40 MG TAB PO SCH (20:19)
[2022-02-19] MEDS: Hydrocortisone Sod Succ/PF 100 mg/2 ml Vial IVP SCH ×4 (00:17→18:00)
[2022-02-19] MEDS: Propofol 1,000 MG/100 ML VIAL IV PRN ×5 (02:58→18:01)
[2022-02-19 04:32] LABS: Hemoglobin 10.5 g/dL (14.0-18.0); Mean Corpuscular HGB CONC 33.2 g/dL (32.0-36.0); Mean Corpuscular Hemoglobin 29.4 pg (27.0-31.0); Mean Corpuscular Volume 88.7 fL (78.0-98.0); Mean Platelet Volume 9.1 fL (7.4-10.4); Platelet Count 157 thou/uL (130-400); RBC Distribution Width 14.5 % (11.5-14.5); Red Blood Cell (RBC) Count 3.58 mill/uL (4.70-6.10); White Blood Cell (WBC) Count 24.8 thou/uL (4.8-10.8)
[2022-02-19] MEDS: Levothyroxine Sodium 50 MCG TAB PO SCH (04:56)
[2022-02-19] MEDS: Heparin 5,000 UNITS/ML VIAL SC SCH ×3 (05:03→21:21)
[2022-02-19 05:07] LABS: Band 24 % (5-11); Lymphocytes 7 % (21-51); MDiff Complete? YES; Metamyelocyte 5 % (0-0); Monocytes 6 % (0-10); Myelocyte 3 % (0-0); Neutrophil 55 % (42-75); Nucleated RBC 3 % (0)
[2022-02-19 05:09] LABS: ALT (SGPT) 46 U/L (8-55); AST (SGOT) 125 U/L (5-34); Alkaline Phosphatase 140 U/L (40-110); Anion Gap 21 mmol/L (10-20); BUN (Urea Nitrogen) 68 mg/dL (8.4-25.7); Bilirubin, Total 4.5 mg/dL (0.2-1.2); Calc. Creatinine Clearance 29 mL/min (70-130); Calcium 6.7 mg/dL (7.8-10.44); Carbon Dioxide 21 mmol/L (23-31); Chloride 95 mmol/L (98-107); Estimated GFR 8; Globulin 3.4 g/dL (2.4-3.5); Glucose 99 mg/dL (80-115); Potassium 4.4 mmol/L (3.5-5.1); Protein, Total 5.4 g/dL (5.8-8.1); Sodium 133 mmol/L (136-145)
[2022-02-19] MEDS: Amiodarone 450 MG, Admixture Fee 1 EACH in Dextrose 5% in Water 250 ML IVPB SCH (06:30)
[2022-02-19 07:24] LABS: Actual Bicarbonate (HCO3a) 21.8 mEq/L (22-28); CO2 Tension 48.4 mmHg (35.0-45.0); Calcium, Ionized (arterial) 0.89 mmol/L (1.12-1.30); Carboxyhemoglobin (COHb) 1.1 gm% (0.0-3.0); Hemoglobin (Hb) 10.2 g/dL (14.0-18.0); O2 Tension (PaO2), arterial 67.2 mmHg (> 80.0); Potassium - ABG Lab 4.04 mmol/L (3.70-5.30); pH, Arterial 7.27 (7.35-7.45)
[2022-02-19 07:26] LABS: Puncture Site RRA
[2022-02-19] MEDS: Polyethylene Glycol 3350 17 GM Packet PO SCH (08:36)
[2022-02-19] MEDS: Piperacillin/Tazobactam 3.375 GM in Sodium Chloride 0.9% 100 ML IVPB SCH ×2 (08:37→19:42)
[2022-02-19] MEDS: NIFEdipine XL 90 MG TAB PO SCH (08:38)
[2022-02-19] MEDS: Famotidine/PF 20 mg/2ml Vial SLOW IVP SCH (08:38)
[2022-02-19] MEDS: Magnesium Oxide 400 MG TAB PO SCH (08:38)
[2022-02-19] MEDS: Senokot S 8.6-50 MG TAB PO SCH ×2 (08:39→21:21)
[2022-02-19] MEDS: Thiamine 100 MG TAB PO SCH (08:39)
[2022-02-19] MEDS: Metoprolol Tartrate 100 MG TAB PO SCH ×2 (08:39→21:21)
[2022-02-19] MEDS ORDERED: Heparin 10,000 UNITS/ 10 ML VIAL ONE (09:46)
[2022-02-19] MEDS: Lorazepam 2 MG/ML VIAL SLOW IVP PRN (15:47)
[2022-02-19] MEDS: Atorvastatin Calcium 40 MG TAB PO SCH (21:21)
[2022-02-20] MEDS: Hydrocortisone Sod Succ/PF 100 mg/2 ml Vial IVP SCH ×4 (00:03→17:11)
[2022-02-20] MEDS: Propofol 1,000 MG/100 ML VIAL IV PRN ×3 (00:13→12:57)
[2022-02-20] MEDS: Amiodarone 450 MG, Admixture Fee 1 EACH in Dextrose 5% in Water 250 ML IVPB SCH ×2 (00:49→14:01)
[2022-02-20 05:04] LABS: ALT (SGPT) 41 U/L (8-55); AST (SGOT) 91 U/L (5-34); Alkaline Phosphatase 143 U/L (40-110); Anion Gap 20 mmol/L (10-20); BUN (Urea Nitrogen) 57 mg/dL (8.4-25.7); Bilirubin, Total 4.4 mg/dL (0.2-1.2); Calc. Creatinine Clearance 32 mL/min (70-130); Calcium 7.4 mg/dL (7.8-10.44); Carbon Dioxide 23 mmol/L (23-31); Chloride 94 mmol/L (98-107); Estimated GFR 10; Globulin 4.2 g/dL (2.4-3.5); Glucose 104 mg/dL (80-115); Potassium 4.4 mmol/L (3.5-5.1); Protein, Total 6.2 g/dL (5.8-8.1); Sodium 133 mmol/L (136-145)
[2022-02-20] MEDS: Levothyroxine Sodium 50 MCG TAB PO SCH (06:12)
[2022-02-20] MEDS: Heparin 5,000 UNITS/ML VIAL SC SCH ×3 (06:13→22:00)
[2022-02-20 07:45] LABS: Band 29 % (5-11); Hemoglobin 10.8 g/dL (14.0-18.0); Lymphocytes 5 % (21-51); MDiff Complete? YES; Mean Corpuscular HGB CONC 34.1 g/dL (32.0-36.0); Mean Corpuscular Hemoglobin 29.9 pg (27.0-31.0); Mean Corpuscular Volume 87.7 fL (78.0-98.0); Mean Platelet Volume 9.5 fL (7.4-10.4); Metamyelocyte 3 % (0-0); Monocytes 3 % (0-10); Myelocyte 2 % (0-0); Neutrophil 56 % (42-75); Platelet Count 147 thou/uL (130-400); Platelet Morphology Comment Appears Adequate; Polychromasia SLIGHT = 2-3 cells (100X) (0-2/hpf); RBC Distribution Width 14.5 % (11.5-14.5); Reactive Lymphocytes 2 % (0-10); Red Blood Cell (RBC) Count 3.62 mill/uL (4.70-6.10); Target Cells SLIGHT = 2-5 cells (100X) (0-1/hpf); Tear Drops SLIGHT = 2-5 cells (100X) (0-1/hpf)
[2022-02-20 07:50] LABS: Actual Bicarbonate (HCO3a) 22.6 mEq/L (22-28); Base Excess (BEa) -4.9 mEq/L (-2.0 to +3.0); CO2 Tension 52.5 mmHg (35.0-45.0); Calcium, Ionized (arterial) 0.92 mmol/L (1.12-1.30); Carboxyhemoglobin (COHb) 1.1 gm% (0.0-3.0); Hemoglobin (Hb) 11.6 g/dL (14.0-18.0); Potassium - ABG Lab 4.29 mmol/L (3.70-5.30)
[2022-02-20 07:56] LABS: pH, Arterial 7.25 (7.35-7.45)
[2022-02-20 07:57] LABS: O2 Tension (PaO2), arterial 47.3 mmHg (> 80.0)
[2022-02-20 07:58] LABS: Puncture Site RRA
[2022-02-20 08:00] LABS: ALV-art Gradient 243.575 mmHg (0-20)
[2022-02-20] MEDS: Piperacillin/Tazobactam 3.375 GM in Sodium Chloride 0.9% 100 ML IVPB SCH ×2 (09:25→20:39)
[2022-02-20] MEDS: NIFEdipine XL 90 MG TAB PO SCH (09:25)
[2022-02-20] MEDS: Magnesium Oxide 400 MG TAB PO SCH (09:26)
[2022-02-20] MEDS: Thiamine 100 MG TAB PO SCH (09:27)
[2022-02-20] MEDS: Metoprolol Tartrate 100 MG TAB PO SCH ×2 (09:27→20:39)
[2022-02-20] MEDS: Famotidine/PF 20 mg/2ml Vial SLOW IVP SCH (09:27)
[2022-02-20] MEDS: Polyethylene Glycol 3350 17 GM Packet PO SCH (09:28)
[2022-02-20] MEDS: Senokot S 8.6-50 MG TAB PO SCH ×2 (09:28→20:39)
[2022-02-20] MEDS: Morphine 2 MG/ML VIAL SLOW IVP PRN (11:59)
[2022-02-20] MEDS: Atorvastatin Calcium 40 MG TAB PO SCH (20:39)
[2022-02-21] MEDS: Hydrocortisone Sod Succ/PF 100 mg/2 ml Vial IVP SCH ×5 (00:07→23:16)
[2022-02-21] MEDS: Propofol 1,000 MG/100 ML VIAL IV PRN ×4 (00:09→23:16)
[2022-02-21] MEDS: Morphine 2 MG/ML VIAL SLOW IVP PRN (01:11)
[2022-02-21 04:41] LABS: Hemoglobin 10.1 g/dL (14.0-18.0); Mean Corpuscular HGB CONC 32.7 g/dL (32.0-36.0); Mean Corpuscular Hemoglobin 28.6 pg (27.0-31.0); Mean Corpuscular Volume 87.5 fL (78.0-98.0); Mean Platelet Volume 9.8 fL (7.4-10.4); Platelet Count 142 thou/uL (130-400); RBC Distribution Width 14.8 % (11.5-14.5); Red Blood Cell (RBC) Count 3.52 mill/uL (4.70-6.10); White Blood Cell (WBC) Count 38.1 thou/uL (4.8-10.8)
[2022-02-21 04:53] LABS: Lactic Acid 0.8 mmol/L (0.5-2.2)
[2022-02-21 04:57] LABS: ALT (SGPT) 41 U/L (8-55); AST (SGOT) 82 U/L (5-34); Albumin 1.9 g/dL (3.4-4.8); Alkaline Phosphatase 150 U/L (40-110); Anion Gap 22 mmol/L (10-20); BUN (Urea Nitrogen) 74 mg/dL (8.4-25.7); Calc. Creatinine Clearance 28 mL/min (70-130); Carbon Dioxide 22 mmol/L (23-31); Chloride 92 mmol/L (98-107); Estimated GFR 8; Globulin 4.2 g/dL (2.4-3.5); Glucose 101 mg/dL (80-115); Potassium 4.6 mmol/L (3.5-5.1); Protein, Total 6.1 g/dL (5.8-8.1); Sodium 131 mmol/L (136-145)
[2022-02-21] MEDS: Levothyroxine Sodium 50 MCG TAB PO SCH (05:23)
[2022-02-21] MEDS: Heparin 5,000 UNITS/ML VIAL SC SCH ×3 (05:23→21:06)
[2022-02-21 06:49] LABS: Band 28 % (5-11); Lymphocytes 4 % (21-51); MDiff Complete? YES; Metamyelocyte 4 % (0-0); Monocytes 3 % (0-10); Myelocyte 6 % (0-0); Neutrophil 55 % (42-75)
[2022-02-21 07:14] LABS: Actual Bicarbonate (HCO3a) 22.6 mEq/L (22-28); CO2 Tension 59.9 mmHg (35.0-45.0); Calcium, Ionized (arterial) 0.84 mmol/L (1.12-1.30); Hemoglobin (Hb) 11.8 g/dL (14.0-18.0); Potassium - ABG Lab 4.59 mmol/L (3.70-5.30)
[2022-02-21 07:18] LABS: ALV-art Gradient 367.225 mmHg (0-20); Puncture Site RRA
[2022-02-21] MEDS ORDERED: ISOVUE-370 76%-LOCM 1 ML ONE (08:00)
[2022-02-21] MEDS: Famotidine/PF 20 mg/2ml Vial SLOW IVP SCH (09:16)
[2022-02-21] MEDS: Piperacillin/Tazobactam 3.375 GM in Sodium Chloride 0.9% 100 ML IVPB SCH (09:16)
[2022-02-21] MEDS: Metoprolol Tartrate 100 MG TAB PO SCH ×2 (09:17→09:31)
[2022-02-21] MEDS: Thiamine 100 MG TAB PO SCH (09:17)
[2022-02-21] MEDS: NIFEdipine XL 90 MG TAB PO SCH (09:17)
[2022-02-21] MEDS: Magnesium Oxide 400 MG TAB PO SCH (09:17)
[2022-02-21] MEDS: Polyethylene Glycol 3350 17 GM Packet PO SCH (09:17)
[2022-02-21] MEDS: Senokot S 8.6-50 MG TAB PO SCH ×2 (09:17→20:19)
[2022-02-21] MEDS ORDERED: Heparin 10,000 UNITS/ 10 ML VIAL ONE (09:49)
[2022-02-21] MEDS ORDERED: Meropenem 1 GM in Sodium Chloride 0.9% 100 ML IVPB SCH ×2 (16:00→17:00)
[2022-02-21] MEDS ORDERED: Vancomycin HCl 1 GM in Sodium Chloride 0.9% 250 ML 250 ML IVPB SCH (16:00)
[2022-02-21] MEDS ORDERED: Vancomycin 1 GM in Premix Bag 1 BAG IVPB SCH (16:30)
[2022-02-21] MEDS: Micafungin 100 MG in Sodium Chloride 0.9% 100 ML IVPB SCH (16:57)
[2022-02-21] MEDS ORDERED: Calcium Chloride 1 GM/10 ML Abboject SYRINGE IVP SCH (17:15)
[2022-02-21] MEDS: Atorvastatin Calcium 40 MG TAB PO SCH (20:19)
[2022-02-21] MEDS ORDERED: Meropenem 500 MG in Sodium Chloride 0.9% 100 ML IVPB SCH (23:59)
[2022-02-22] MEDS: Propofol 1,000 MG/100 ML VIAL IV PRN ×5 (03:17→21:00)
[2022-02-22 03:56] LABS: ALT (SGPT) 40 U/L (8-55); AST (SGOT) 75 U/L (5-34); Albumin 1.8 g/dL (3.4-4.8); Alkaline Phosphatase 149 U/L (40-110); Anion Gap 22 mmol/L (10-20); BUN (Urea Nitrogen) 66 mg/dL (8.4-25.7); Bilirubin, Total 4.8 mg/dL (0.2-1.2); Calc. Creatinine Clearance 32 mL/min (70-130); Carbon Dioxide 23 mmol/L (23-31); Chloride 91 mmol/L (98-107); Estimated GFR 10; Globulin 4.3 g/dL (2.4-3.5); Glucose 91 mg/dL (80-115); Potassium 4.3 mmol/L (3.5-5.1); Protein, Total 6.1 g/dL (5.8-8.1); Sodium 132 mmol/L (136-145)
[2022-02-22 04:21] LABS: Band 36 % (5-11); Hemoglobin 9.8 g/dL (14.0-18.0); Lymphocytes 7 % (21-51); MDiff Complete? YES; Mean Corpuscular HGB CONC 33.6 g/dL (32.0-36.0); Mean Corpuscular Hemoglobin 28.9 pg (27.0-31.0); Mean Corpuscular Volume 86.1 fL (78.0-98.0); Mean Platelet Volume 9.9 fL (7.4-10.4); Monocytes 5 % (0-10); Neutrophil 53 % (42-75); Nucleated RBC 2 % (0); Platelet Count 177 thou/uL (130-400); Platelet Morphology Comment Appears Adequate; Red Blood Cell (RBC) Count 3.37 mill/uL (4.70-6.10); Target Cells SLIGHT = 2-5 cells (100X) (0-1/hpf); White Blood Cell (WBC) Count 42.1 thou/uL (4.8-10.8)
[2022-02-22] MEDS: Hydrocortisone Sod Succ/PF 100 mg/2 ml Vial IVP SCH ×3 (05:41→18:02)
[2022-02-22] MEDS: Heparin 5,000 UNITS/ML VIAL SC SCH ×3 (05:41→21:36)
[2022-02-22] MEDS: Levothyroxine Sodium 50 MCG TAB PO SCH (05:42)
[2022-02-22 07:09] LABS: Actual Bicarbonate (HCO3a) 23.2 mEq/L (22-28); Base Excess (BEa) -3.7 mEq/L (-2.0 to +3.0); CO2 Tension 50.8 mmHg (35.0-45.0); Calcium, Ionized (arterial) 0.83 mmol/L (1.12-1.30); Carboxyhemoglobin (COHb) 0.8 gm% (0.0-3.0); Hemoglobin (Hb) 9.9 g/dL (14.0-18.0); O2 Tension (PaO2), arterial 60.1 mmHg (> 80.0); Potassium - ABG Lab 4.05 mmol/L (3.70-5.30); pH, Arterial 7.28 (7.35-7.45)
[2022-02-22 07:26] LABS: Puncture Site LRA
[2022-02-22] MEDS: Famotidine/PF 20 mg/2ml Vial SLOW IVP SCH (07:58)
[2022-02-22] MEDS: Thiamine 100 MG TAB PO SCH (07:58)
[2022-02-22] MEDS: NIFEdipine XL 90 MG TAB PO SCH (07:59)
[2022-02-22] MEDS: Polyethylene Glycol 3350 17 GM Packet PO SCH (07:59)
[2022-02-22] MEDS: Magnesium Oxide 400 MG TAB PO SCH (07:59)
[2022-02-22] MEDS: Metoprolol Tartrate 100 MG TAB PO SCH ×2 (07:59→08:00)
[2022-02-22] MEDS: Senokot S 8.6-50 MG TAB PO SCH ×2 (07:59→20:38)
[2022-02-22] MEDS ORDERED: Norepinephrine 8 MG/0.9% NS 250 ML ONE (08:39)
[2022-02-22] MEDS ORDERED: Heparin 10,000 UNITS/ 10 ML VIAL ONE (09:42)
[2022-02-22] MEDS: Amiodarone 200 MG TAB PO SCH ×2 (10:06→20:39)
[2022-02-22] MEDS ORDERED: Vancomycin Dialysis Sliding Scale (Wt > 99) FS SCH (10:30)
[2022-02-22 10:56] LABS: Vancomycin, Random 16.3 ug/mL (See Comment)
[2022-02-22] MEDS: Meropenem 500 MG in Sodium Chloride 0.9% 100 ML IVPB SCH (12:53)
[2022-02-22] MEDS: Micafungin 100 MG in Sodium Chloride 0.9% 100 ML IVPB SCH (14:59)
[2022-02-22] MEDS ORDERED: Midazolam HCl 2 mg/2 ml Vial SLOW IVP PRN (16:45)
[2022-02-22] MEDS ORDERED: Vancomycin HCl 750 MG in Sodium Chloride 0.9% 250 ML 250 ML IVPB SCH (17:00)
[2022-02-22] MEDS: Metoprolol Tartrate 50 MG TAB PO SCH ×2 (20:39→21:09)
[2022-02-22] MEDS: Atorvastatin Calcium 40 MG TAB PO SCH (20:39)
[2022-02-23] MEDS: Hydrocortisone Sod Succ/PF 100 mg/2 ml Vial IVP SCH ×5 (00:06→23:13)
[2022-02-23] MEDS: Norepinephrine 8 MG/0.9% NS 250 ML IVPB SCH (02:30)
[2022-02-23 04:45] LABS: ALT (SGPT) 38 U/L (8-55); AST (SGOT) 88 U/L (5-34); Albumin 1.9 g/dL (3.4-4.8); Alkaline Phosphatase 182 U/L (40-110); Anion Gap 21 mmol/L (10-20); BUN (Urea Nitrogen) 56 mg/dL (8.4-25.7); Calc. Creatinine Clearance 36 mL/min (70-130); Calcium 7.2 mg/dL (7.8-10.44); Carbon Dioxide 24 mmol/L (23-31); Chloride 92 mmol/L (98-107); Estimated GFR 11; Globulin 4.5 g/dL (2.4-3.5); Glucose 85 mg/dL (80-115); Potassium 4.1 mmol/L (3.5-5.1); Protein, Total 6.4 g/dL (5.8-8.1); Sodium 133 mmol/L (136-145)
[2022-02-23 04:47] LABS: Band 20 % (5-11); Hemoglobin 9.6 g/dL (14.0-18.0); Lymphocytes 2 % (21-51); MDiff Complete? YES; Mean Corpuscular Hemoglobin 28.7 pg (27.0-31.0); Mean Corpuscular Volume 84.3 fL (78.0-98.0); Mean Platelet Volume 9.4 fL (7.4-10.4); Metamyelocyte 6 % (0-0); Monocytes 6 % (0-10); Myelocyte 6 % (0-0); Neutrophil 59 % (42-75); Nucleated RBC 1 % (0); Platelet Count 250 thou/uL (130-400); Red Blood Cell (RBC) Count 3.36 mill/uL (4.70-6.10); Target Cells SLIGHT = 2-5 cells (100X) (0-1/hpf); White Blood Cell (WBC) Count 42.7 thou/uL (4.8-10.8)
[2022-02-23] MEDS ORDERED: Artificial Tear Sol 15 ML BOT EA EYE PRN (05:23)
[2022-02-23] MEDS: Levothyroxine Sodium 50 MCG TAB PO SCH (05:44)
[2022-02-23] MEDS: Heparin 5,000 UNITS/ML VIAL SC SCH ×3 (05:45→21:28)
[2022-02-23 07:18] LABS: Vancomycin, Random 23.4 ug/mL (See Comment)
[2022-02-23] MEDS: Propofol 1,000 MG/100 ML VIAL IV PRN ×2 (07:58→22:39)
[2022-02-23] MEDS: Polyethylene Glycol 3350 17 GM Packet PO SCH (07:59)
[2022-02-23] MEDS: Amiodarone 200 MG TAB PO SCH ×2 (07:59→20:00)
[2022-02-23] MEDS: Thiamine 100 MG TAB PO SCH (07:59)
[2022-02-23] MEDS: Metoprolol Tartrate 100 MG TAB PO SCH (07:59)
[2022-02-23] MEDS: Senokot S 8.6-50 MG TAB PO SCH ×2 (07:59→20:00)
[2022-02-23] MEDS: Magnesium Oxide 400 MG TAB PO SCH (07:59)
[2022-02-23 09:37] LABS: Actual Bicarbonate (HCO3a) 25.3 mEq/L (22-28); Base Excess (BEa) -1.2 mEq/L (-2.0 to +3.0); CO2 Tension 50.6 mmHg (35.0-45.0); Calcium, Ionized (arterial) 0.84 mmol/L (1.12-1.30); Carboxyhemoglobin (COHb) 0.2 gm% (0.0-3.0); O2 Tension (PaO2), arterial 59.2 mmHg (> 80.0); pH, Arterial 7.32 (7.35-7.45)
[2022-02-23 09:38] LABS: Puncture Site LRA
[2022-02-23] MEDS: Famotidine/PF 20 mg/2ml Vial SLOW IVP SCH (09:48)
[2022-02-23] MEDS: Morphine 2 MG/ML VIAL SLOW IVP PRN ×2 (11:28→19:59)
[2022-02-23] MEDS: Meropenem 500 MG in Sodium Chloride 0.9% 100 ML IVPB SCH (14:39)
[2022-02-23] MEDS: Micafungin 100 MG in Sodium Chloride 0.9% 100 ML IVPB SCH (16:42)
[2022-02-23] MEDS: Metoprolol Tartrate 50 MG TAB PO SCH (20:00)
[2022-02-23] MEDS: Atorvastatin Calcium 40 MG TAB PO SCH (20:00)
[2022-02-24] MEDS: Propofol 1,000 MG/100 ML VIAL IV PRN ×4 (04:26→20:25)
[2022-02-24] MEDS: Heparin 5,000 UNITS/ML VIAL SC SCH ×3 (05:05→21:25)
[2022-02-24] MEDS: Levothyroxine Sodium 50 MCG TAB PO SCH (05:05)
[2022-02-24] MEDS: Hydrocortisone Sod Succ/PF 100 mg/2 ml Vial IVP SCH ×4 (05:07→23:14)
[2022-02-24 05:51] LABS: ALT (SGPT) 35 U/L (8-55); AST (SGOT) 79 U/L (5-34); Albumin 1.9 g/dL (3.4-4.8); Alkaline Phosphatase 173 U/L (40-110); Anion Gap 21 mmol/L (10-20); BUN (Urea Nitrogen) 76 mg/dL (8.4-25.7); Calc. Creatinine Clearance 30 mL/min (70-130); Calcium 7.1 mg/dL (7.8-10.44); Carbon Dioxide 23 mmol/L (23-31); Chloride 91 mmol/L (98-107); Estimated GFR 9; Globulin 4.6 g/dL (2.4-3.5); Glucose 81 mg/dL (80-115); Potassium 4.4 mmol/L (3.5-5.1); Protein, Total 6.5 g/dL (5.8-8.1); Sodium 131 mmol/L (136-145)
[2022-02-24 06:36] LABS: Hemoglobin 8.7 g/dL (14.0-18.0); Mean Corpuscular HGB CONC 34.2 g/dL (32.0-36.0); Mean Corpuscular Hemoglobin 28.6 pg (27.0-31.0); Mean Corpuscular Volume 83.4 fL (78.0-98.0); Mean Platelet Volume 9.6 fL (7.4-10.4); Platelet Count 271 thou/uL (130-400); RBC Distribution Width 15.2 % (11.5-14.5); Red Blood Cell (RBC) Count 3.05 mill/uL (4.70-6.10); White Blood Cell (WBC) Count 41.2 thou/uL (4.8-10.8)
[2022-02-24 07:13] LABS: Vancomycin, Random 20.4 ug/mL (See Comment)
[2022-02-24 07:38] LABS: Band 23 % (5-11); Lymphocytes 5 % (21-51); Metamyelocyte 3 % (0-0); Myelocyte 3 % (0-0); Neutrophil 66 % (42-75); Nucleated RBC 4 % (0)
[2022-02-24 07:53] LABS: Actual Bicarbonate (HCO3a) 23.3 mEq/L (22-28); Base Excess (BEa) -2.9 mEq/L (-2.0 to +3.0); CO2 Tension 47.6 mmHg (35.0-45.0); Calcium, Ionized (arterial) 0.82 mmol/L (1.12-1.30); Carboxyhemoglobin (COHb) 1.1 gm% (0.0-3.0); Hemoglobin (Hb) 8.5 g/dL (14.0-18.0); O2 Tension (PaO2), arterial 69.5 mmHg (> 80.0); Potassium - ABG Lab 4.46 mmol/L (3.70-5.30); pH, Arterial 7.31 (7.35-7.45)
[2022-02-24 08:08] LABS: MDiff Complete? YES; Polychromasia MODERATE = 3-4 cells (100X) (0-2/hpf); Rouleaux Formation SLIGHT = 1-5 cells (100X) (None Seen); Target Cells SLIGHT = 2-5 cells (100X) (0-1/hpf)
[2022-02-24 08:21] LABS: Puncture Site LRA
[2022-02-24] MEDS: Amiodarone 200 MG TAB PO SCH ×2 (09:47→20:22)
[2022-02-24] MEDS: Polyethylene Glycol 3350 17 GM Packet PO SCH (09:47)
[2022-02-24] MEDS: Magnesium Oxide 400 MG TAB PO SCH (09:48)
[2022-02-24] MEDS: Metoprolol Tartrate 100 MG TAB PO SCH (09:48)
[2022-02-24] MEDS: Famotidine/PF 20 mg/2ml Vial SLOW IVP SCH (09:48)
[2022-02-24] MEDS: Thiamine 100 MG TAB PO SCH (09:48)
[2022-02-24] MEDS: Senokot S 8.6-50 MG TAB PO SCH ×2 (09:48→20:22)
[2022-02-24] MEDS: Meropenem 500 MG in Sodium Chloride 0.9% 100 ML IVPB SCH (14:45)
[2022-02-24] MEDS: Micafungin 100 MG in Sodium Chloride 0.9% 100 ML IVPB SCH (16:57)
[2022-02-24] MEDS: Metoprolol Tartrate 50 MG TAB PO SCH (20:22)
[2022-02-24] MEDS: Atorvastatin Calcium 40 MG TAB PO SCH (20:22)
[2022-02-24] MEDS: Acetaminophen 325 MG TAB PO PRN (20:31)
[2022-02-25] MEDS: Hydrocortisone Sod Succ/PF 100 mg/2 ml Vial IVP SCH ×4 (05:32→23:17)
[2022-02-25] MEDS: Heparin 5,000 UNITS/ML VIAL SC SCH ×3 (05:32→21:14)
[2022-02-25] MEDS: Levothyroxine Sodium 50 MCG TAB PO SCH (05:32)
[2022-02-25 05:46] LABS: Hemoglobin 9.4 g/dL (14.0-18.0); Mean Corpuscular HGB CONC 34.8 g/dL (32.0-36.0); Mean Corpuscular Hemoglobin 28.9 pg (27.0-31.0); Mean Corpuscular Volume 83.2 fL (78.0-98.0); Mean Platelet Volume 9.3 fL (7.4-10.4); Platelet Count 271 thou/uL (130-400); RBC Distribution Width 15.4 % (11.5-14.5); Red Blood Cell (RBC) Count 3.23 mill/uL (4.70-6.10); White Blood Cell (WBC) Count 42.5 thou/uL (4.8-10.8)
[2022-02-25 06:12] LABS: Band 20 % (5-11); Hypochromia SLIGHT = 6-15 cells (100X) (0-5/hpf); Lymphocytes 5 % (21-51); MDiff Complete? YES; Monocytes 9 % (0-10); Neutrophil 66 % (42-75); Nucleated RBC 2 % (0); Platelet Morphology Comment Appears Adequate
[2022-02-25 06:41] LABS: ALT (SGPT) 38 U/L (8-55); AST (SGOT) 87 U/L (5-34); Albumin 2.1 g/dL (3.4-4.8); Alkaline Phosphatase 202 U/L (40-110); Anion Gap 25 mmol/L (10-20); BUN (Urea Nitrogen) 97 mg/dL (8.4-25.7); Calc. Creatinine Clearance 26 mL/min (70-130); Calcium 7.3 mg/dL (7.8-10.44); Carbon Dioxide 21 mmol/L (23-31); Chloride 88 mmol/L (98-107); Estimated GFR 7; Globulin 5.2 g/dL (2.4-3.5); Glucose 74 mg/dL (80-115); Potassium 5.1 mmol/L (3.5-5.1); Protein, Total 7.3 g/dL (5.8-8.1); Sodium 129 mmol/L (136-145)
[2022-02-25 07:30] LABS: Vancomycin, Random 20.4 ug/mL (See Comment)
[2022-02-25 07:48] LABS: Actual Bicarbonate (HCO3a) 21.3 mEq/L (22-28); Base Excess (BEa) -5.7 mEq/L (-2.0 to +3.0); pH, Arterial 7.27 (7.35-7.45)
[2022-02-25 07:49] LABS: Calcium, Ionized (arterial) 0.83 mmol/L (1.12-1.30)
[2022-02-25 07:53] LABS: O2 Tension (PaO2), arterial 57.1 mmHg (> 80.0); Puncture Site LRA
[2022-02-25] MEDS: Polyethylene Glycol 3350 17 GM Packet PO SCH (08:39)
[2022-02-25] MEDS: Amiodarone 200 MG TAB PO SCH ×2 (08:40→20:58)
[2022-02-25] MEDS: Magnesium Oxide 400 MG TAB PO SCH (08:41)
[2022-02-25] MEDS: Famotidine/PF 20 mg/2ml Vial SLOW IVP SCH (08:41)
[2022-02-25] MEDS: Senokot S 8.6-50 MG TAB PO SCH ×2 (08:41→20:59)
[2022-02-25] MEDS: Thiamine 100 MG TAB PO SCH (08:41)
[2022-02-25] MEDS: Metoprolol Tartrate 100 MG TAB PO SCH (08:41)
[2022-02-25] MEDS: Propofol 1,000 MG/100 ML VIAL IV PRN ×3 (08:42→17:46)
[2022-02-25] MEDS: Norepinephrine 8 MG/0.9% NS 250 ML IVPB SCH ×3 (13:45→23:19)
[2022-02-25] MEDS: Micafungin 100 MG in Sodium Chloride 0.9% 100 ML IVPB SCH (15:00)
[2022-02-25] MEDS: Meropenem 500 MG in Sodium Chloride 0.9% 100 ML IVPB SCH (16:08)
[2022-02-25 17:03] VITALS: BMI 56.2
[2022-02-25 20:17] VITALS: TEMP 100.2
[2022-02-25] MEDS: Atorvastatin Calcium 40 MG TAB PO SCH (20:58)
[2022-02-25] MEDS: Metoprolol Tartrate 50 MG TAB PO SCH (20:58)
[2022-02-25 22:27] VITALS: BP 94/39
[2022-02-27 09:14] LABS: Fungus Stain Final report (.); Fungus Stain Result 1 Yeast observed (.)
== END 2022-02-26 00:15 | disposition expired | DRG 353 ==
LOC: ERS 13:51 → SURG B 19:49 → 2NO 02-09 03:53 → CCU 02-13 07:48
PROVIDERS: ADMIT Student in an Organized Health Care Education/Training Program; ATTEND Family Medicine
PROC: 0WUF4JZ Supplement Abdominal Wall with Synthetic Substitute, Percutaneous Endoscopic Approach (ICD-10-PCS; principal; 2022-02-10)
PROC: 8E0W4CZ Robotic Assisted Procedure of Trunk Region, Percutaneous Endoscopic Approach (ICD-10-PCS; 2022-02-10)
PROC: 5A1955Z Respiratory Ventilation, Greater than 96 Consecutive Hours (ICD-10-PCS; 2022-02-13)
PROC: 3E043XZ Introduction of Vasopressor into Central Vein, Percutaneous Approach (ICD-10-PCS; 2022-02-13)
PROC: 5A09357 Assistance with Respiratory Ventilation, Less than 24 Consecutive Hours, Continuous Positive Airway Pressure (ICD-10-PCS; 2022-02-13)
PROC: 02HV33Z Insertion of Infusion Device into Superior Vena Cava, Percutaneous Approach (ICD-10-PCS; 2022-02-13)
PROC: B548ZZA Ultrasonography of Superior Vena Cava, Guidance (ICD-10-PCS; 2022-02-13)
PROC: 0D9670Z Drainage of Stomach with Drainage Device, Via Natural or Artificial Opening (ICD-10-PCS; 2022-02-13)
PROC: 0BH17EZ Insertion of Endotracheal Airway into Trachea, Via Natural or Artificial Opening (ICD-10-PCS; 2022-02-13)
PROC: 5A12012 Performance of Cardiac Output, Single, Manual (ICD-10-PCS; 2022-02-13)
PROC: 0B9B8ZZ Drainage of Left Lower Lobe Bronchus, Via Natural or Artificial Opening Endoscopic (ICD-10-PCS; 2022-02-14)
PROC: 0B948ZZ Drainage of Right Upper Lobe Bronchus, Via Natural or Artificial Opening Endoscopic (ICD-10-PCS; 2022-02-14)
PROC: 0B988ZZ Drainage of Left Upper Lobe Bronchus, Via Natural or Artificial Opening Endoscopic (ICD-10-PCS; 2022-02-14)
PROC: 0B968ZZ Drainage of Right Lower Lobe Bronchus, Via Natural or Artificial Opening Endoscopic (ICD-10-PCS; 2022-02-14)
PROC: 8E0ZXY6 Isolation (ICD-10-PCS; 2022-02-14)
PROC: 06HY33Z Insertion of Infusion Device into Lower Vein, Percutaneous Approach (ICD-10-PCS; 2022-02-15)
PROC: 5A1D70Z Performance of Urinary Filtration, Intermittent, Less than 6 Hours Per Day (ICD-10-PCS; 2022-02-15)
PROC: 3E03329 Introduction of Other Anti-infective into Peripheral Vein, Percutaneous Approach (ICD-10-PCS; 2022-02-21)
DX: K43.6 Other and unspecified ventral hernia with obstruction, without gangrene (principal); J80 Acute respiratory distress syndrome; U07.1 COVID-19; J69.0 Pneumonitis due to inhalation of food and vomit; B37.1 Pulmonary candidiasis; A41.9 Sepsis, unspecified organism; J15.5 Pneumonia due to Escherichia coli; J12.82 Pneumonia due to coronavirus disease 2019; N18.6 End stage renal disease; N17.9 Acute kidney failure, unspecified; Z68.43 Body mass index [BMI] 50.0-59.9, adult; J95.89 Other postprocedural complications and disorders of respiratory system, not elsewhere classified; I50.32 Chronic diastolic (congestive) heart failure; Q61.2 Polycystic kidney, adult type; I48.92 Unspecified atrial flutter; E66.2 Morbid (severe) obesity with alveolar hypoventilation; I13.2 Hypertensive heart and chronic kidney disease with heart failure and with stage 5 chronic kidney disease, or end stage renal disease; K56.7 Ileus, unspecified; N04.9 Nephrotic syndrome with unspecified morphologic changes; E87.1 Hypo-osmolality and hyponatremia; J98.11 Atelectasis; E87.2 Acidosis; Z66 Do not resuscitate; Z51.5 Encounter for palliative care; M19.90 Unspecified osteoarthritis, unspecified site; E78.5 Hyperlipidemia, unspecified; K21.9 Gastro-esophageal reflux disease without esophagitis; E03.9 Hypothyroidism, unspecified; R91.8 Other nonspecific abnormal finding of lung field; R80.9 Proteinuria, unspecified; I48.0 Paroxysmal atrial fibrillation; E88.09 Other disorders of plasma-protein metabolism, not elsewhere classified; I89.0 Lymphedema, not elsewhere classified; M10.9 Gout, unspecified; D63.1 Anemia in chronic kidney disease; R73.03 Prediabetes; R74.01 Elevation of levels of liver transaminase levels; R57.8 Other shock; I46.8 Cardiac arrest due to other underlying condition; I49.1 Atrial premature depolarization; E87.5 Hyperkalemia; Z78.1 Physical restraint status; Z79.899 Other long term (current) drug therapy; Z79.82 Long term (current) use of aspirin; Z79.890 Hormone replacement therapy; Z98.890 Other specified postprocedural states; Z82.49 Family history of ischemic heart disease and other diseases of the circulatory system; Z86.79 Personal history of other diseases of the circulatory system; Z99.2 Dependence on renal dialysis
CPT/HCPCS: 31624; 36415; 36416; 36600; 71045; 74176; 74177; 76700; 80053; 80061; 80202; 81003; 81015; 82570; 82805; 83036; 83605; 83690; 83735; 83880; 84100; 84145; 84156; 84443; 84484; 85025; 85060; 85520; 86038; 86225; 86704; 87040; 87070; 87077; 87102; 87186; 87205; 87206; 87324; 87340; 87449; 90935; 93005; 93010; 93306; 94002; 94003; 94660; 94760; 96361; 96374; 96375; G0257; J0171; J0282; J0690; J1160; J1642; J1644; J1650; J1720; J2001; J2060; J2185; J2248; J2270; J2405; J2543; J2704; J3010; J3370; J3490; J7030; J7050; J7070; P9045; Q9966; S0020; S0028; U0002; U0003; U0005